=== PATIENT | female | born 1975 | race Caucasian/White ===

== ENCOUNTER 2017-11-02 22:26 | Inpatient (IN) | payer MEDICAID ==
[2017-11-02 23:15] LABS: ADD MAN DIFF? NO
[2017-11-02] MEDS: hydrALAzine 20 MG INJ IV (23:17)
[2017-11-02 23:18] LABS: WHITE BLOOD COUNT 11.6 10^3/ul (4.8-10.8)
[2017-11-02 23:18] LABS: BASOPHILS % 0.3 % (0.0-2.0); EOSINOPHILS # 0.3 10^3/ul (0.0-0.5); EOSINOPHILS % 2.3 % (0.0-7.0); HEMOGLOBIN 11.9 g/dl (12.0-16.0); LYMPHOCYTES # 2.5 10^3/ul (0.8-2.9); LYMPHOCYTES % 21.5 % (15.0-51.0); MEAN CORPUSCULAR HEMOGLOBIN 25.6 pg (29.0-33.0); MEAN CORPUSCULAR HGB CONC 32.2 g/dl (32.0-37.0); MEAN CORPUSCULAR VOLUME 79.7 fl (82.0-101.0); MONOCYTE # 0.9 10^3/ul (0.3-0.9); MONOCYTES % 8.1 % (0.0-11.0); NEUTROPHIL # 7.8 10^3/ul (1.6-7.5); NEUTROPHILS % 67.4 % (39.0-77.0); PLATELET COUNT 333 10^3/UL (140-415); RED BLOOD COUNT 4.64 10^6/ul (4.20-5.40); RED CELL DISTRIBUTION WIDTH 15.7 % (11.5-14.5)
[2017-11-02] MEDS: LORAZEPAM 2 MG INJ IV (23:31)
[2017-11-02 23:39] LABS: INR 0.83; PROTIME 11.5 Sec (11.9-14.9); PT RATIO 0.9
[2017-11-02 23:40] LABS: PARTIAL THROMBOPLASTIN TIME 31.5 Sec (25.0-35.0)
[2017-11-02 23:47] LABS: ALANINE AMINOTRANSFERASE 19 IU/L (13-69); ALBUMIN/GLOBULIN RATIO 1.05; ALKALINE PHOSPHATASE 98 IU/L (42-121); ANION GAP 13 (8-16); ASPARTATE AMINO TRANSFERASE 38 IU/L (15-46); BILIRUBIN,INDIRECT 0.2 mg/dl (0-1.1); BILIRUBIN,TOTAL 0.2 mg/dl (0.2-1.3); BLOOD UREA NITROGEN 16 mg/dl (7-20); CALCIUM 9.1 mg/dl (8.4-10.2); CARBON DIOXIDE 25 mmol/L (21-31); CHLORIDE 104 mmol/L (97-110); CREATININE 0.48 mg/dl (0.44-1.00); GLUCOSE 100 mg/dl (70-220); POTASSIUM 4.6 mmol/L (3.5-5.1); SODIUM 137 mmol/L (135-144); TOTAL PROTEIN 7.8 g/dl (6.1-8.1)
[2017-11-02 23:59] LABS: B-TYPE NATRIURETIC PEPTIDE 61 PG/ML (0-125); TROPONIN-I 0.014 ng/ml (0.000-0.120)
[2017-11-03] MEDS: METOPROLOL 5 MG INJ IV (00:28)
[2017-11-03] MEDS ORDERED: NACL 0.9% 3 ML SYG IV (02:30)
[2017-11-03] MEDS ORDERED: ALBUTEROL/IPRATROPIUM (NEB) 3 ML AMP HHN (02:30)
[2017-11-03] MEDS ORDERED: ONDANSETRON 4 MG INJ IV (02:30)
[2017-11-03] MEDS: ENALAPRILAT 1.25 MG INJ IV (03:07)
[2017-11-03] MEDS: ACETAMINOPHEN 325 MG TAB PO ×2 (03:18→10:21)
[2017-11-03] MEDS: hydrALAzine 20 MG INJ IV ×2 (04:12→12:02)
[2017-11-03 06:18] LABS: ADD MAN DIFF? NO
[2017-11-03 06:38] LABS: WHITE BLOOD COUNT 11.9 10^3/ul (4.8-10.8)
[2017-11-03 06:38] LABS: BASOPHIL # 0.1 10^3/ul (0.0-0.1); BASOPHILS % 0.6 % (0.0-2.0); EOSINOPHILS # 0.2 10^3/ul (0.0-0.5); EOSINOPHILS % 1.4 % (0.0-7.0); HEMATOCRIT 36.9 % (37.0-47.0); HEMOGLOBIN 11.9 g/dl (12.0-16.0); LYMPHOCYTES % 16.8 % (15.0-51.0); MEAN CORPUSCULAR HEMOGLOBIN 25.6 pg (29.0-33.0); MEAN CORPUSCULAR HGB CONC 32.2 g/dl (32.0-37.0); MEAN CORPUSCULAR VOLUME 79.5 fl (82.0-101.0); MEAN PLATELET VOLUME 10.2 fl (7.4-10.4); MONOCYTES % 8.2 % (0.0-11.0); NEUTROPHIL # 8.6 10^3/ul (1.6-7.5); NEUTROPHILS % 72.4 % (39.0-77.0); PLATELET COUNT 343 10^3/UL (140-415); RED BLOOD COUNT 4.64 10^6/ul (4.20-5.40)
[2017-11-03 07:08] LABS: TROPONIN-I < 0.012 ng/ml (0.000-0.120)
[2017-11-03 07:16] LABS: CHOLESTEROL 179 mg/dl (100-200)
[2017-11-03 07:16] LABS: CHOL/HDL RATIO 3.1 RATIO; HDL CHOLESTEROL 57 mg/dl (34-88); LDL CHOLESTEROL,CALCULATED 86 mg/dl; TRIGLYCERIDES 181 mg/dl (0-149)
[2017-11-03 07:17] LABS: ANION GAP 12 (8-16); BLOOD UREA NITROGEN 13 mg/dl (7-20); CALCIUM 8.8 mg/dl (8.4-10.2); CARBON DIOXIDE 25 mmol/L (21-31); CHLORIDE 104 mmol/L (97-110); GLUCOSE 92 mg/dl (70-220); SODIUM 137 mmol/L (135-144)
[2017-11-03 07:26] LABS: CREATINE KINASE 62 IU/L (23-200)
[2017-11-03 07:37] LABS: CK INDEX 0.6
[2017-11-03] MEDS: METOPROLOL 25 MG TAB PO (08:19)
[2017-11-03] MEDS: ASPIRIN 81 MG TAB PO (08:19)
[2017-11-03] MEDS: AMLODIPINE 10 MG TAB PO (08:20)
[2017-11-03 10:44] LABS: HEMOGLOBIN A1C 5.6 % (0-5.9)
[2017-11-03] MEDS: HYDROCODONE/APAP (5/325) TAB PO (12:02)
[2017-11-03 12:56] LABS: CREATINE KINASE 75 IU/L (23-200)
[2017-11-03 13:08] LABS: CK INDEX 0.4; CK-MB 0.31 ng/ml (0.0-2.4); TROPONIN-I < 0.012 ng/ml (0.000-0.120)
== END 2017-11-03 16:51 | disposition home or self-care (01) | DRG 305 ==
LOC: E/R 22:26 → 6WM 11-03 02:15
DX: I16.0 Hypertensive urgency (principal); Z68.42 Body mass index [BMI] 45.0-49.9, adult; R51 Headache; R60.9 Edema, unspecified; E66.01 Morbid (severe) obesity due to excess calories
CPT/HCPCS: 36415; 70450; 71045; 80048; 80053; 80061; 82550; 82553; 83036; 83880; 84443; 84484; 85025; 85610; 85730; 93005; 93306; 96374; 96375; 99291-25